=== PATIENT | female | born 1950 | race Caucasian/White ===

== ENCOUNTER 2018-07-22 10:16 | Outpatient (CLI) | payer MEDICARE ==
--- NOTE | 2018-07-22 11:28 | RAD ---
CERVICAL SPINE SERIES 3 VIEWS: HISTORY: Neck pain. FINDINGS: Vertebral bodies are normal in height. Some very minimal anterolysis of C3 on C4. There is some mod erate disk narrowing at C5-6. Degenerative facet changes are present. IMPRESSION: Moderate osteoarthritic changes of the spine. POS: TPC
--- NOTE | 2018-07-22 11:30 | RAD ---
LEFT WRIST 3 VIEWS: HISTORY: Wrist pain. FINDINGS: There are osteoarthritic changes of the wrist. These include changes of the 1st carpometacarpal join t and triscaphe joint. Bone demineralization is normal. No fractures. IMPRESSION: Mild osteoarthritic changes of the wrist. POS: TPC
== END 2018-07-22 10:17 | disposition home or self-care (01) ==
LOC: RAD-FRANK 10:16
PROVIDERS: ATTEND Nurse Practitioner Family
DX: M25.532 Pain in left wrist (principal); M54.2 Cervicalgia; M19.032 Primary osteoarthritis, left wrist; M47.812 Spondylosis without myelopathy or radiculopathy, cervical region
CPT/HCPCS: 72040

== ENCOUNTER 2019-04-04 11:27 | Outpatient (CLI) | payer MEDICARE, OTHER ==
--- NOTE | 2019-04-04 13:05 | ULT ---
CAROTID ULTRASOUND WITH KAMARA SCALE AND DOPPLER DUPLEX COLOR FLOW IMAGING SPECTRAL ANALYSIS PERFORMED: DATE: 04/04/19 CLINICAL INDICATION: Expressive aphasia. No prior comparison. FINDINGS: There is scattered mild intimal thickening/plaque formation. PEAK SYSTOLIC VELOCITY (CM/S): Right CCA 109 Left CCA 154 Right ICA 86 Left ICA 74 There is antegrade flow within the visualized bilateral vertebral arteries. IMPRESSION: 1. No hemodynamically significant stenosis of the right internal carotid artery. 2. No hemodynamically significant stenosis of the left internal carotid artery. POS: C
--- NOTE | 2019-04-04 13:19 | CT ---
CT BRAIN WITHOUT CONTRAST: Date: 04/04/19 HISTORY: Expressive aphasia, uncontrolled hypertension. Vertigo. FINDINGS: There are no previous exams for comparison. 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 No evidence of acute infarct, hemorrhage, midline shift, or abnormal extra-axial fluid collections are seen. The ventricular size i s appropriate and the basilar cisterns are patent. The bony calvarium is intact. The visualized paran olivia sinuses and mastoid air cells are well aerated. IMPRESSION: No CT evidence of acute intracranial process. POS: OFF
== END 2019-04-04 11:28 | disposition home or self-care (01) ==
LOC: BICULT 11:27
PROVIDERS: ATTEND Nurse Practitioner Family
DX: R47.01 Aphasia (principal)
CPT/HCPCS: 70450; 93880

== ENCOUNTER 2023-01-04 08:01 | Day surgery (SDC) | payer MEDICARE ==
[2023-01-03 12:39] VITALS: BMI 27.1
[2023-01-04 08:54] LABS: Hemoglobin 15.4 g/dL (12.0-16.0)
[2023-01-04 09:15] LABS: Anion Gap 15 mmol/L (10-20); BUN (Urea Nitrogen) 11 mg/dL (9.8-20.1); Calc. Creatinine Clearance 75 mL/min (70-130); Calcium 9.4 mg/dL (7.8-10.44); Carbon Dioxide 20 mmol/L (23-31); Chloride 111 mmol/L (98-107); Estimated GFR 78; Glucose 81 mg/dL (80-115); Potassium 4.4 mmol/L (3.5-5.1); Sodium 142 mmol/L (136-145)
[2023-01-04] MEDS ORDERED: fentaNYL 50 mcg/mL 1 mL Vial ONE (10:13)
[2023-01-04] MEDS ORDERED: PROPOFOL 200 MG/20 ML VIAL ONE (10:18)
[2023-01-04] MEDS ORDERED: Lidocaine 1% PF 5 ML VIAL ONE (10:18)
[2023-01-04] MEDS ORDERED: Lidocaine 1% (PF) 30 ML VIAL ONE (10:19)
[2023-01-04] MEDS ORDERED: Acetaminophen 500 MG TAB ONE (11:32)
== END 2023-01-04 11:50 | disposition home or self-care (01) ==
LOC: SDC 08:01
PROVIDERS: ATTEND Specialist
PROC: 07B20ZX Excision of Left Neck Lymphatic, Open Approach, Diagnostic (ICD-10-PCS; principal; 2023-01-04)
DX: C34.12 Malignant neoplasm of upper lobe, left bronchus or lung (principal); C7A.8 Other malignant neuroendocrine tumors; I10 Essential (primary) hypertension; K21.9 Gastro-esophageal reflux disease without esophagitis; E78.5 Hyperlipidemia, unspecified; Z90.49 Acquired absence of other specified parts of digestive tract; Z98.84 Bariatric surgery status; Z90.710 Acquired absence of both cervix and uterus; Z90.89 Acquired absence of other organs; Z87.891 Personal history of nicotine dependence; Z79.899 Other long term (current) drug therapy
CPT/HCPCS: 38500; 80048; 85014; 85018; 93005; J3010; 88184; 88307; 88341; 88342; 88360; 93010; J2001; J2704

== ENCOUNTER 2023-02-06 12:53 | Outpatient (CLI) | payer MEDICARE | END 2023-02-06 12:54 | disposition home or self-care (01) | LOC: NM 12:53 | PROVIDERS: ATTEND Internal Medicine Hematology & Oncology | DX: C7A.1 Malignant poorly differentiated neuroendocrine tumors (principal) | CPT/HCPCS: 78802; 78803; A4641; A9572 ==

== ENCOUNTER 2023-08-08 07:23 | Day surgery (SDC) | payer MEDICARE ==
[2023-08-08] MEDS ORDERED: Lidocaine 1% PF 5 ML VIAL ONE (08:36)
[2023-08-08] MEDS ORDERED: Sodium Bicarbonate 2.5 MEQ/5 ML SDV ONE (08:36)
[2023-08-08 10:11] VITALS: BP 195/98; TEMP 98
== END 2023-08-08 09:45 | disposition home or self-care (01) ==
LOC: ULT 07:23
PROVIDERS: ATTEND Physician Assistant Medical
PROC: 0W9G3ZZ Drainage of Peritoneal Cavity, Percutaneous Approach (ICD-10-PCS; principal; 2023-08-08)
DX: D3A.00 Benign carcinoid tumor of unspecified site (principal); R18.8 Other ascites; C7B.00 Secondary carcinoid tumors, unspecified site; C7A.1 Malignant poorly differentiated neuroendocrine tumors; I10 Essential (primary) hypertension; Z86.73 Personal history of transient ischemic attack (TIA), and cerebral infarction without residual deficits; Z90.710 Acquired absence of both cervix and uterus; Z98.84 Bariatric surgery status; Z87.891 Personal history of nicotine dependence; Z79.899 Other long term (current) drug therapy
CPT/HCPCS: 49083; 82042; 84157; 87070; 87205; 88112; 88305

== ENCOUNTER 2023-12-20 08:32 | Outpatient (CLI) | payer MEDICARE | END 2023-12-20 08:33 | disposition home or self-care (01) | LOC: CT 08:32 | PROVIDERS: ATTEND Internal Medicine Hematology & Oncology | DX: C7A.1 Malignant poorly differentiated neuroendocrine tumors (principal); C7B.00 Secondary carcinoid tumors, unspecified site; R22.1 Localized swelling, mass and lump, neck; C77.0 Secondary and unspecified malignant neoplasm of lymph nodes of head, face and neck; C78.7 Secondary malignant neoplasm of liver and intrahepatic bile duct | CPT/HCPCS: 70491; 71260; 74160; 82565 ==

== ENCOUNTER 2024-05-05 07:34 | Outpatient (CLI) | payer MEDICARE ==
[2024-05-05] MEDS ORDERED: Iopamidol 370 76% 100 ML VIAL ONE (10:34)
== END 2024-05-05 07:35 | disposition home or self-care (01) ==
LOC: CT 07:34
PROVIDERS: ATTEND Internal Medicine Hematology & Oncology
DX: C7A.1 Malignant poorly differentiated neuroendocrine tumors (principal); C7B.00 Secondary carcinoid tumors, unspecified site; R59.0 Localized enlarged lymph nodes; R18.8 Other ascites; I77.89 Other specified disorders of arteries and arterioles; R91.8 Other nonspecific abnormal finding of lung field; K76.89 Other specified diseases of liver
CPT/HCPCS: 70491; 71260; 74177

== ENCOUNTER 2025-04-06 07:17 | Outpatient (CLI) | payer MEDICARE ==
[2025-04-06 07:51] LABS: Estimated GFR - POC 37.0
[2025-04-06] MEDS ORDERED: Iopamidol 370 76% 100 ML VIAL ONE (08:43)
== END 2025-04-06 07:18 | disposition home or self-care (01) ==
LOC: CT 07:17
PROVIDERS: ATTEND Internal Medicine Hematology & Oncology
DX: C7A.1 Malignant poorly differentiated neuroendocrine tumors (principal); C7B.00 Secondary carcinoid tumors, unspecified site; R91.8 Other nonspecific abnormal finding of lung field; R59.1 Generalized enlarged lymph nodes; K76.9 Liver disease, unspecified; R59.0 Localized enlarged lymph nodes; Z79.899 Other long term (current) drug therapy
CPT/HCPCS: 36415; 70491; 71260; 74177; 82565; Q9967